=== PATIENT | female | born 1940 | race Caucasian/White ===

== ENCOUNTER 2016-10-11 09:13 | Outpatient (CLI) | payer MEDICARE, OTHER | END 2016-10-11 09:14 | disposition home or self-care (01) | DX: Q61.02 Congenital multiple renal cysts (principal) ==

== ENCOUNTER 2020-12-16 08:00 | Outpatient (CLI) | payer MEDICARE, OTHER | END 2020-12-16 23:59 | disposition home or self-care (01) | LOC: LAB.S 08:00 | PROVIDERS: ATTEND Physician Assistant Medical | DX: R39.15 Urgency of urination (principal) | CPT/HCPCS: 87086; 87181 ==

== ENCOUNTER 2021-12-24 08:00 | Outpatient (CLI) | payer MEDICARE, OTHER ==
--- NOTE | 2021-12-24 17:41 | XRAY Report ---
PROCEDURE: Toe(s) RT INDICATIONS: RIGHT THIRD TOE ULCER TECHNIQUE: 3 views of the third toe(s) acquired. COMPARISON: None FINDINGS: Bones: No fractures or dislocations. No suspicious bony lesions. Soft tissues: No suspicious soft tissue densities. Third toe soft tissue swelling without radiopaqu e foreign body IMPRESSION: Soft tissue swelling without definitive lytic lesion. Consider follow-up MRI if osteomyelitis is a cl inical concern. Reviewed by: Andrew Merritt MD on 12/24/2021 4:40 PM MILO Approved by: Andrew Merritt MD on 12/24/2021 4:40 PM AKMANUELITO Station ID: [id number]
== END 2021-12-24 23:59 | disposition home or self-care (01) ==
LOC: DI.S 08:00
PROVIDERS: ATTEND Registered Nurse
DX: L89.892 Pressure ulcer of other site, stage 2 (principal)

== ENCOUNTER 2022-03-04 14:09 | Outpatient (CLI) | payer MEDICARE, OTHER | END 2022-03-04 14:10 | disposition home or self-care (01) | LOC: LAB.S 14:09 | PROVIDERS: ATTEND Physician Assistant | DX: R30.0 Dysuria (principal) | CPT/HCPCS: 87086 ==

== ENCOUNTER 2023-01-27 08:00 | Outpatient (CLI) | payer MEDICARE, OTHER | END 2023-01-27 23:59 | disposition home or self-care (01) | LOC: LAB.S 08:00 | PROVIDERS: ATTEND Physician Assistant | DX: R30.0 Dysuria (principal) | CPT/HCPCS: 87077; 87086; 87181 ==

== ENCOUNTER 2023-07-10 18:07 | Outpatient (CLI) | payer MEDICARE, OTHER | END 2023-07-10 23:59 | disposition short-term general hospital (02) | LOC: EMS 18:07 | DX: R07.9 Chest pain, unspecified (principal) | CPT/HCPCS: A0425; A0427 ==

== ENCOUNTER 2023-10-25 08:00 | Outpatient (CLI) | payer MEDICARE, OTHER | END 2023-10-25 23:59 | disposition home or self-care (01) | LOC: LAB.S 08:00 | PROVIDERS: ATTEND Registered Nurse | DX: R30.0 Dysuria (principal) | CPT/HCPCS: 87077; 87086; 87181 ==

== ENCOUNTER 2024-01-12 18:03 | Outpatient (CLI) | payer MEDICARE, OTHER | END 2024-01-12 23:59 | disposition short-term general hospital (02) | LOC: EMS 18:03 | DX: R07.9 Chest pain, unspecified (principal); I10 Essential (primary) hypertension | CPT/HCPCS: A0425; A0429 ==

== ENCOUNTER 2024-02-13 06:52 | Outpatient (CLI) | payer MEDICARE, OTHER | END 2024-02-13 06:53 | disposition EMS.NT | LOC: EMS 06:52 | DX: I10 Essential (primary) hypertension (principal) ==